=== PATIENT | male | born 1960 | race Caucasian/White ===

== ENCOUNTER 2020-10-26 17:22 | Emergency (ER) | payer BC ==
[2020-10-26] MEDS ORDERED: SILVADENE 50 GM TP ONE ×2 (17:33→17:46)
[2020-10-26] MEDS ORDERED: KEFLEX 500 MG PO ONE (17:35)
[2020-10-26] MEDS ORDERED: Adacel Vial IM ONE ×2 (17:35→18:22)
[2020-10-26] MEDS ORDERED: OXYCODONE-ACETAMINOPHEN 10-325 PO STA (17:36)
--- NOTE | 2020-10-26 18:03 | ERPHSYRPT ---
- History of Present Illness Time Seen by Provider: 10/26/20 17:40 Source: patient Exam Limitations: no limitations Patient Subjective Stated Complaint: amputated tip of 3rd L hand Triage Nursing Assessment: pt to ED with amputated tip of 3rd finger of L hand. 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 bleeding on arrival, wrapped in paper towel from home. 10/10 pain on arrival. numbed with lidocaine by MD and pt states pain is much better. unsure of last tetanus vaccine. Physician History: This is a 60-year-old right-handed white male who was working with [employer] saw when he amputated the distal tip of his left middle finger. Patient presents in pain with bleeding at the tip of his finger. Occurred: just prior to arrival Method of Injury: other (Injury with a saw) Quality: aching, throbbing Severity of Pain-Max: moderate Severity of Pain-Current: moderate Extremities Pain Location: 3rd finger: left Modifying Factors: Improves With: movement Associated Symptoms: none Allergies/Adverse Reactions: No Known Drug Allergies Allergy (Verified 10/26/20 17:44) Hx Tetanus, Diphtheria Vaccination/Date Given: No Hx Influenza Vaccination/Date Given: No Hx Pneumococcal Vaccination/Date Given: No Immunizations Up to Date: No Travel Risk - International Travel Have you traveled outside of the country in past 3 weeks: No - Coronavirus Screening Are you exhibiting any of the following symptoms?: No Close contact with a COVID-19 positive Pt in past 14-21 Days: No - Review of Systems Constitutional: No Symptoms Eyes: No Symptoms Ears, Nose, & Throat: No Symptoms Respiratory: No Symptoms Cardiac: No Symptoms Abdominal/Gastrointestinal: No Symptoms Genitourinary Symptoms: No Symptoms Musculoskeletal: Injury (Distal left third digit) Neurological: No Symptoms Psychological: No Symptoms Endocrine: No Symptoms Hematologic/Lymphatic: No Symptoms Immunological/Allergic: No Symptoms All Other Systems: Reviewed and Negative - Past Medical History Pertinent Past Medical History: Yes Neurological History: No Pertinent History ENT History: No Pertinent History Cardiac History: Hypertension, Myocardial Infarction ([place]) Respiratory History: Tuberculosis, Other Endocrine Medical History: No Pertinent History Musculoskeletal History: No Pertinent History GI Medical History: No Pertinent History History: No Pertinent History Psycho-Social History: No Pertinent History Male Reproductive Disorders: No Pertinent History Other Medical History: SPONTANOUS PNUEMOTHORAX x 2. TB 2002 - Past Surgical History Past Surgical History: Yes Neuro Surgical History: No Pertinent History Cardiac: Cardiac Catheterization, Cardiac Stent Respiratory: Other Gastrointestinal: Hernia Repair Genitourinary: No Pertinent History Musculoskeletal: No Pertinent History Male Surgical History: No Pertinent History Other Surgical History: RIGHT SIDE HERNIA REPAIR. 2 SPONTANEOUS PNEUMOTHORAX AT AGE OG 24 ET 26. 2 stents placed 2013 - Social History Smoking Status: Current every day smoker How long have you smoked: 0.5 Exposure to second hand smoke: Yes Alcohol Use: Socially Drug Use: none Patient Lives Alone: No Significant Family History: no pertinent family hx - Nursing Vital Signs Nursing Vital Signs: Initial Vital Signs Temperature 98.1 F 10/26/20 17:36 Pulse Rate 105 H 10/26/20 17:36 Respiratory Rate 20 10/26/20 17:36 Blood Pressure 118/84 10/26/20 17:36 O2 Sat by Pulse Oximetry 95 10/26/20 17:36 Pain Scale Pain Intensity 10 - Physical Exam General Appearance: mild distress, alert, anxiety Eyes, Ears, Nose, Throat Exam: normal ENT inspection, moist mucous membranes Neck Exam: normal inspection, non-tender, supple, full range of motion Cardiovascular/Respiratory Exam: chest non-tender, no respiratory distress Abdominal Exam: non-tender Back Exam: normal inspection, normal range of motion, No CVA tenderness Shoulder Exam: normal inspection, non-tender, no evidence of injury, normal ROM Elbow/Forearm Exam: normal inspection, non-tender, no evidence of injury, normal ROM Wrist Exam: normal inspection, non-tender, no evidence of injury, normal ROM Hand Exam: normal ROM (There is an amputation of tissue and half of the nail bed the distal third digit. There appears to be full function of the tendons. There is brisk oozing from the site which is controlled with pressure.) Neuro/Tendon Exam: normal sensation, normal motor functions, normal tendon functions, no evidence tendon injury Mental Status Exam: alert, oriented x 3 Skin Exam: other (Of) SpO2 Interpretation: borderline oxygenation SpO2: 95 O2 Delivery: Room Air - Course Nursing assessment & vital signs reviewed: Yes Ordered Tests: Active Orders 24 hr Category Date Time Status HAND (MINIMUM 3 VIEWS) Stat Exams 10/26/20 17:36 Taken Medication Summary Discontinued Medications Generic Name Dose Route Start Last Admin Trade Name Freq PRN Reason Stop Dose Admin Cephalexin HCl 500 mg 10/26/20 17:35 Keflex 500 Mg PO 10/26/20 17:36 STAT ONE Diphtheria/Tetanus/Acell Pertussis 0.5 ml 10/26/20 17:35 Adacel Vial IM 10/26/20 17:36 .ONCE ONE Oxycodone/Acetaminophen 1 tab 10/26/20 17:36 Oxycodone-Acetaminophen 10-325 PO 10/26/20 17:37 STAT STA Silver Sulfadiazine Confirm 10/26/20 17:33 Silvadene 50 Gm Administered 10/26/20 17:34 Dose 50 gm TP .STK-MED ONE Silver Sulfadiazine 50 gm 10/26/20 17:46 Silvadene 50 Gm TP 10/26/20 17:47 STAT ONE - Progress Progress: improved, pain not gone completely, re-examined Progress Note: 10/26/20 18:06 Procedure note: Evaluation of the patient's left third digit was performed after prepping the digit with Betadine solution and anesthetizing the area with approximately 3 mL of 1% lidocaine plain. Patient had full function of his tendons of that digit. The risk of oozing from the amputation site ceased with pressure and injection of the lidocaine. The area was cleaned dried Silvadene was placed overlying the open amputated site then a pressure dressing and finger splint was placed. There were no complications the pain tolerated the procedure well. Medical decision making: This patient has an amputated tip of his distal third digit. At [address] Pathak, hand surgeon out of [facility]. I spoke with the operating room nurse who relayed the information about this patient to him. We put the x-rays on the cloud. Dr. Pathak gave us an appointment for this patient. He is to see Dr. Pathak at the [facility] clinic at 1 PM tomorrow afternoon. Discussed with Dr.: Other (Dr. Pathak, hand surgeon out of [facility]) Counseled pt/family regarding: diagnosis, need for follow-up, rad results - Departure Departure Disposition: Home Clinical Impression: Amputation finger Condition: Stable Critical Care Time: No Referrals: ABEL JUNIOR [Primary Care Provider] - Additional Instructions: Keep the pressure dressing in place. Take your medication as prescribed. Follow-up with Dr. Pathak at his office per instructions and directions. Be there just before 1 PM tomorrow, October 27, 2020. Prescriptions: Hydrocodone/APAP 5/325 [[place] 5/325 mg] 1 each PO Q8H PRN PRN #10 tablet MDD 3 PRN Reason: Pain Cephalexin Mh 500 mg [Keflex 500 mg] 500 mg PO TID #21 capsule
[2020-10-26] MEDS ORDERED: KEFLEX 500 MG ONE (18:21)
[2020-10-26] MEDS ORDERED: OXYCODONE-ACETAMINOPHEN 10-325 ONE (18:22)
[2020-10-26 18:32] VITALS: BP 103/77; PULSE 89; O2SAT 98
--- NOTE | 2020-10-27 08:45 | XRAY ---
Indication: 3rd digit laceration with saw. Comparison: None 3 view left hand demonstrates 3rd phalanx tuft soft tissue/bony amputation, old nonunited ulnar styloid fracture with tiny heterotopic ossification, and a ring base 4th phalanx. No other bony, articular, or soft tissue abnormalities.
== END 2020-10-26 18:50 | disposition home or self-care (01) ==
LOC: ED 17:22
DX: S68.123A Partial traumatic metacarpophalangeal amputation of left middle finger, initial encounter (principal); W31.2XXA Contact with powered woodworking and forming machines, initial encounter; I10 Essential (primary) hypertension; I25.2 Old myocardial infarction
CPT/HCPCS: 73130; 90471; 90715; 99284; A9270-GY

== ENCOUNTER 2022-05-21 19:04 | Observation (INO) | payer BC ==
[2022-05-21] MEDS ORDERED: Sterile H2O 10 ml IJ ONE ×2 (19:07→23:43)
[2022-05-21] MEDS ORDERED: solu-MEDROL ONE ×2 (19:07→23:42)
[2022-05-21] MEDS ORDERED: DUONEB 0.5-3 MG/3 ml Neb IH ONE ×2 (19:08→19:12)
[2022-05-21] MEDS ORDERED: BENADRYL 50 MG/ML ONE (19:11)
[2022-05-21] MEDS ORDERED: Pepcid 20 MG VIAL IV ONE ×2 (19:11→19:12)
[2022-05-21] MEDS ORDERED: solu-MEDROL 125 MG, Sterile H2O 10 ml 2 ML IV ONE ×2 (19:12)
[2022-05-21] MEDS ORDERED: BENADRYL 50 MG/ML IV ONE (19:13)
[2022-05-21 19:24] LABS: A-aADO2 148; ABG HEMOGLOBIN 17.2; ABG POTASSIUM 3.7 (3.5-5.1); ABG SITE LEFT RADIAL; ALLEN TEST OK? YES; ARTERIAL BLD GAS O2 SATURATION 97.7 % (95-100); ARTERIAL BLOOD GAS FIO2 40 %; ARTERIAL BLOOD GAS PCO2 40 mmHg (35-45); ARTERIAL BLOOD GAS PO2 87 mmHg (75-100); ARTERIAL BLOOD GAS pH 7.43 (7.35-7.45); CARBOXYHEMOGLOBIN 6.3 % THgb (0.0-6.9); HCO3- 26.5 (22-28); HGB O2 SAT 90.4 g/dF (94-100); Lactic Acid 1.8 (0.4-2.0); Methhemoglobin 1.1 % (1.4-1.5)
--- NOTE | 2022-05-21 19:27 | ERPHSYRPT ---
- History of Present Illness Time Seen by Provider: 05/21/22 19:12 Source: patient Exam Limitations: clinical condition Physician History: 62 years old male with history of coronary artery disease status post CABG, hypertension, hyperlipidemia presented in the ER with chief complaint of sudden onset's moderate to severe shortness of breath after eating and inhaled a mi xture of bleach and toilet bowl photo mask cleaner for almost 5 minutes while cleaning his bathroom. Complaining of chest tightness bilaterally with burning sensations. Patient oxygen saturation is around 86/87% on presentation, placed on 6 L oxygen and improved to 92%. Is given Solu-Medrol and DuoNeb and placed on coolmist Venturi mask 40% with sats around 96%. Timing/Duration: hour(s) (0.5), constant, sudden, worse Activities at Onset: other Possible Cause: allergen exposure Modifying Factors: Improves With: nothing Associated Symptoms: cough, wheezing, heart racing, tightness Allergies/Adverse Reactions: No Known Drug Allergies Allergy (Verified 10/26/20 17:44) Home Medications: Ezetimibe 10 mg [Zetia 10 MG] 10 mg PO DAILY 05/21/22 [History] Furosemide 20 mg [Lasix 20 mg] 20 mg PO DAILY 05/21/22 [History] Metoprolol Succinate 50 mg [Toprol Xl 50 MG] 50 mg PO DAILY 05/21/22 [History] lisinopriL [Lisinopril] 5 mg PO DAILY 05/21/22 [History] Hx Tetanus, Diphtheria Vaccination/Date Given: No Hx Influenza Vaccination/Date Given: No Hx Pneumococcal Vaccination/Date Given: No - Review of Systems All Other Systems: Unable due to condition - Past Medical History Pertinent Past Medical History: Yes Neurological History: No Pertinent History ENT History: No Pertinent History Cardiac History: Hypertension, Myocardial Infarction ([place]) Respiratory History: Tuberculosis, Other Endocrine Medical History: No Pertinent History Musculoskeletal History: No Pertinent History GI Medical History: No Pertinent History History: No Pertinent History Psycho-Social History: No Pertinent History Male Reproductive Disorders: No Pertinent History Other Medical History: SPONTANOUS PNUEMOTHORAX x 2. TB 2002 - Past Surgical History Past Surgical History: Yes Neuro Surgical History: No Pertinent History Cardiac: Cardiac Catheterization, Cardiac Stent Respiratory: Other Gastrointestinal: Hernia Repair Genitourinary: No Pertinent History Musculoskeletal: No Pertinent History Male Surgical History: No Pertinent History Other Surgical History: RIGHT SIDE HERNIA REPAIR. 2 SPONTANEOUS PNEUMOTHORAX AT AGE OG 24 ET 26. 2 stents placed 2013 - Social History Smoking Status: Current every day smoker How long have you smoked: 0.5 Exposure to second hand smoke: Yes Alcohol Use: Socially Drug Use: none Patient Lives Alone: No Significant Family History: no pertinent family hx - Nursing Vital Signs Nursing Vital Signs: Initial Vital Signs Temperature 98.3 F 05/21/22 19:05 Pulse Rate 92 H 05/21/22 19:05 Respiratory Rate 18 05/21/22 19:05 Blood Pressure 117/90 05/21/22 19:05 O2 Sat by Pulse Oximetry 90 L 05/21/22 19:05 Pain Scale Pain Intensity 6 - Physical Exam General Appearance: moderate distress, alert Eye Exam: PERRL/EOMI Ears, Nose, Throat Exam: pharyngeal erythema Neck Exam: normal inspection, non-tender, supple, full range of motion Respiratory Exam: respiratory distress, diminished breath sounds, accessory muscle use, rhonchi, wheezing Cardiovascular/Chest Exam: normal heart sounds, regular rate/rhythm Abdominal/Gastrointestinal Exam: soft, normal bowel sounds, No tenderness Extremity Exam: non-tender, normal range of motion Neurologic Exam: alert, oriented x 3, cooperative Skin Exam: normal color SpO2 Interpretation: hypoxic, O2 applied SpO2: 92 O2 Delivery: Nasal Cannula - Course EKG Interpreted by Me: RATE (82), Sinus Rhythm, NORMAL AXIS, NORMAL INTERVALS, Non-specific ST Changes Ordered Tests: Medication Summary Discontinued Medications Generic Name Dose Route Start Last Admin Trade Name Rachael PRN Reason Stop Dose Admin Acetaminophen 650 mg 05/21/22 22:25 05/22/22 13:47 Acetaminophen 325 Mg Tablet PO 06/20/22 22:24 650 mg Q4H PRN PRN Administration PAIN AND/OR FEVER Albuterol/Ipratropium Confirm 05/21/22 19:08 Ipratropium/Albuterol Sulfate 3 Ml Ampul.Neb Administered 05/21/22 19:09 Dose 3 ml IH .STK-MED ONE Albuterol/Ipratropium 3 ml 05/21/22 19:12 05/21/22 19:15 Ipratropium/Albuterol Sulfate 3 Ml Ampul.Neb IH 05/21/22 19:13 3 ml STAT ONE Administration Albuterol/Ipratropium 3 ml 05/21/22 23:00 05/22/22 11:07 Ipratropium/Albuterol Sulfate 3 Ml Ampul.[facility] 06/20/22 22:59 3 ml Q4HRT STEPHANIE Administration Albuterol/Ipratropium 3 ml 05/22/22 15:00 05/23/22 06:53 Ipratropium/Albuterol Sulfate 3 Ml Ampul.[facility] 06/21/22 14:59 3 ml QIDRT STEPHANIE Administration Methylprednisolone Sodium 0 mg 05/21/22 19:12 05/21/22 19:10 Succinate 125 mg/ Sterile IV 05/21/22 19:13 125 mg Water 2 ml STAT ONE Administration Methylprednisolone Sodium 0 mg 05/22/22 00:00 05/22/22 11:30 Succinate 80 mg/ Sterile Water IV 06/21/22 00:00 80 mg 2 ml Q6HT STEPHANIE Administration Methylprednisolone Sodium 0 mg 05/22/22 22:00 05/23/22 05:53 Succinate 40 mg/ Sterile Water IV 06/21/22 21:59 40 mg 1 ml Q8HT STEPHANIE Administration Diphenhydramine HCl 25 mg 05/21/22 19:13 05/21/22 19:15 Diphenhydramine Hcl 50 Mg/Ml Vial IV 05/21/22 19:14 25 mg STAT ONE Administration Diphenhydramine HCl Confirm 05/21/22 19:11 Diphenhydramine Hcl 50 Mg/Ml Vial Administered 05/21/22 19:12 Dose 50 mg .ROUTE .STK-MED ONE Ezetimibe 10 mg 05/22/22 16:00 05/23/22 07:50 Ezetimibe 10 Mg Tab PO 06/21/22 15:59 10 mg DAILY STEPHANIE Administration Famotidine 20 mg 05/21/22 19:12 05/21/22 19:13 Famotidine 20 Mg/1 Vial IV 05/21/22 19:13 20 mg STAT ONE Administration Famotidine Confirm 05/21/22 19:11 Famotidine 20 Mg/1 Vial Administered 05/21/22 19:12 Dose 20 mg IV .STK-MED ONE Furosemide 20 mg 05/22/22 16:00 05/23/22 07:50 Furosemide 20 Mg Tablet PO 06/21/22 15:59 20 mg DAILY STEPHANIE Administration Levofloxacin/Dextrose 500 mg in 100 mls @ 100 mls/hr 05/21/22 20:29 05/21/22 21:41 Levofloxacin 500mg/100ml D5w IV 05/21/22 21:28 Infused STAT STA Infusion Levofloxacin/Dextrose Confirm 05/21/22 20:40 Levofloxacin 500mg/100ml D5w Administered 05/21/22 20:41 Dose 500 mg in 100 mls @ ud IV .STK-MED ONE Levofloxacin/Dextrose 500 mg in 100 mls @ 100 mls/hr 05/22/22 22:00 Levofloxacin 500mg/100ml D5w IV 06/21/22 21:59 Q24H22 STEPHANIE Lisinopril 5 mg 05/22/22 16:00 05/23/22 07:50 Lisinopril 5 Mg Tablet PO 06/21/22 15:59 5 mg DAILY STEPHANEI Administration Lorazepam 0.5 mg 05/22/22 14:07 05/22/22 14:44 Lorazepam 0.5 Mg Tablet PO 06/21/22 14:06 0.5 mg TID PRN PRN Administration ANXIETY Lorazepam 1 mg 05/22/22 17:59 05/23/22 05:46 Lorazepam 1 Mg Tablet PO 06/21/22 17:58 1 mg QID PRN PRN Administration ANXIETY Methylprednisolone Sodium Succinate Confirm 05/21/22 19:07 Methylprednis Sod Succ 125 Mg/2 Ml Vial Administered 05/21/22 19:08 Dose 125 mg .ROUTE .STK-MED ONE Methylprednisolone Sodium Succinate Confirm 05/21/22 23:42 Methylprednis Sod Succ 125 Mg/2 Ml Vial Administered 05/21/22 23:43 Dose 125 mg .ROUTE .STK-MED ONE Methylprednisolone Sodium Succinate Confirm 05/22/22 06:00 Methylprednis Sod Succ 125 Mg/2 Ml Vial Administered 05/22/22 06:01 Dose 125 mg .ROUTE .STK-MED ONE Metoprolol Succinate 50 mg 05/22/22 16:00 05/23/22 07:50 Metoprolol Succinate 50 Mg Tablet.Sa PO 06/21/22 15:59 50 mg DAILY STEPHANIE Administration Nicotine 21 mg 05/22/22 14:07 05/22/22 14:44 Nicotine 21 Mg/Patch Patch TOP 05/22/22 14:08 21 mg STAT ONE Administration Pantoprazole Sodium 40 mg 05/22/22 10:00 05/23/22 07:52 Pantoprazole 40 Mg Vial IV 06/21/22 09:59 40 mg Q24H10 STEPHANIE Administration Sterile Water Confirm 05/21/22 19:07 Water For Injection,Sterile 10 Ml Vial Administered 05/21/22 19:08 Dose 10 ml IJ .STK-MED ONE Sterile Water Confirm 05/21/22 23:43 Water For Injection,Sterile 10 Ml Vial Administered 05/21/22 23:44 Dose 10 ml IJ .STK-MED ONE Lab/Rad Data: Laboratory Result Diagrams 05/21/22 19:52 05/21/22 19:52 Laboratory Results 05/21/22 05/21/22 05/21/22 Range/Units 20:47 20:47 19:52 WBC (4.0-10.5) x10^3/uL RBC (4.1-5.6) x10^6/uL Hgb (12.5-18.0) g/dL Hct (42-50) % MCV (78-100) fL MCH (26-32) pg MCHC (32-36) g/dL RDW (11.5-14.0) % Plt Count (150-450) x10^3/uL MPV (7.5-11.0) fL Gran % (36.0-66.0) % Immature Gran % (Auto) (0.00-0.4) % Nucleat RBC Rel Count (0.00-0.1) % Eos # (Auto) (0-0.5) x10^3/uL Immature Gran # (Auto) (0.00-0.03) x10^3u/L Absolute Lymphs (auto) (1.0-4.6) x10^3/uL Absolute Monos (auto) (0.0-1.3) x10^3/uL Absolute Nucleated RBC (0.00-0.01) x10^3u/L Lymphocytes % (24.0-44.0) % Monocytes % (0.0-12.0) % Eosinophils % (0.00-5.0) % Basophils % (0.0-0.4) % Absolute Granulocytes (1.4-6.9) x10^3/uL Basophils # (0-0.4) x10^3/uL Puncture Site pCO2 (35-45) mmHg pO2 (75-100) mmHg Base Excess (-2.0-2.0) O2 Saturation (94-100) g/dF ABG pH (7.35-7.45) ABG HCO3 (22-28) ABG O2 Sat (Measured) (95-100) % Carlos Test A-a Gradient a/A Ratio Hemoglobin Carboxyhemoglobin (0.0-6.9) % THgb Methemoglobin (1.4-1.5) % Potassium (3.5-5.1) Temperature C POC O2 Flow Rate % Sodium (137-145) mmol/L Chloride (98-107) mmol/L Carbon Dioxide (22-30) mmol/L Anion Gap (5-15) MEQ/L BUN (9-20) mg/dL Creatinine (0.66-1.25) mg/dL Estimated GFR ML/MIN Glucose (74-106) mg/dL Lactic Acid (0.4-2.0) Calcium (8.4-10.2) mg/dL Magnesium (1.6-2.3) mg/dL Total Bilirubin (0.2-1.3) mg/dL AST (17-59) U/L ALT (0-50) U/L Alkaline Phosphatase (38-126) U/L Troponin I < 0.012 (0.000-0.034) ng/mL NT-Pro-B Natriuret Pep (0-900) pg/mL Serum Total Protein (6.3-8.2) g/dL Albumin (3.5-5.0) g/dL Urinalys Dipstick Clnc MAIN LAB Urine Color YELLOW (YELLOW) Urine Appearance CLEAR (CLEAR) Urine pH 6.0 (5-6) Ur Specific [place] 1.010 (1.005-1.025) POC Urine Protein Conf NEGATIVE (Negative) Urine Ketones NEGATIVE (NEGATIVE) Urine Nitrite NEGATIVE (NEGATIVE) Urine Bilirubin NEGATIVE (NEGATIVE) Urine Urobilinogen 0.2 (0-1) mg/dL Urine Leukocytes NEGATIVE (NEGATIVE) Urine WBC (Auto) NONE (0-5) /HPF Urine RBC (Auto) NONE (0-2) /HPF U Epithel Cells (Auto) NONE (FEW) /HPF Urine Bacteria (Auto) NONE (NEGATIVE) /HPF Urine RBC NEGATIVE (0-5) Moris/ul Other Casts (Auto) NEGATIVE (NEGATIVE) /LPF Ur Culture Indicated? NO Urine Glucose NEGATIVE (NEGATIVE) mg/dL Influenza Type A Ag NEGATIVE (NEGATIVE) Influenza Type B Ag NEGATIVE (NEGATIVE) RSV (PCR) NEGATIVE (Negative) SARS-CoV-2 (PCR) NEGATIVE (NEGATIVE) 05/21/22 05/21/22 05/21/22 Range/Units 19:52 19:52 19:19 WBC 7.0 (4.0-10.5) x10^3/uL RBC 5.13 (4.1-5.6) x10^6/uL Hgb 16.6 (12.5-18.0) g/dL Hct 49.2 (42-50) % MCV 95.9 (78-100) fL MCH 32.4 H (26-32) pg MCHC 33.7 (32-36) g/dL RDW 13.4 (11.5-14.0) % Plt Count 175 (150-450) x10^3/uL MPV 9.8 (7.5-11.0) fL Gran % 55.3 (36.0-66.0) % Immature Gran % (Auto) 1.0 H (0.00-0.4) % Nucleat RBC Rel Count 0.0 (0.00-0.1) % Eos # (Auto) 0.27 (0-0.5) x10^3/uL Immature Gran # (Auto) 0.07 H (0.00-0.03) x10^3u/L Absolute Lymphs (auto) 2.12 (1.0-4.6) x10^3/uL Absolute Monos (auto) 0.64 (0.0-1.3) x10^3/uL Absolute Nucleated RBC 0.00 (0.00-0.01) x10^3u/L Lymphocytes % 30.1 (24.0-44.0) % Monocytes % 9.1 (0.0-12.0) % Eosinophils % 3.8 (0.00-5.0) % Basophils % 0.7 (0.0-0.4) % Absolute Granulocytes 3.89 (1.4-6.9) x10^3/uL Basophils # 0.05 (0-0.4) x10^3/uL Puncture Site LEFT RADIAL pCO2 40 (35-45) mmHg pO2 87 (75-100) mmHg Base Excess 2.0 (-2.0-2.0) O2 Saturation 90.4 L (94-100) g/dF ABG pH 7.43 (7.35-7.45) ABG HCO3 26.5 (22-28) ABG O2 Sat (Measured) 97.7 (95-100) % Carlos Test YES A-a Gradient 148 a/A Ratio 0.37 Hemoglobin 17.2 Carboxyhemoglobin 6.3 (0.0-6.9) % THgb Methemoglobin 1.1 L (1.4-1.5) % Potassium 3.8 3.7 (3.5-5.1) Temperature 37.0 C POC O2 Flow Rate 40 % Sodium 133 L (137-145) mmol/L Chloride 103 (98-107) mmol/L Carbon Dioxide 19 L (22-30) mmol/L Anion Gap 15.0 (5-15) MEQ/L BUN 14 (9-20) mg/dL Creatinine 0.71 (0.66-1.25) mg/dL Estimated GFR > 60.0 ML/MIN Glucose 117 H (74-106) mg/dL Lactic Acid 1.8 (0.4-2.0) Calcium 8.2 L (8.4-10.2) mg/dL Magnesium 2.1 (1.6-2.3) mg/dL Total Bilirubin 0.70 (0.2-1.3) mg/dL AST 81 H (17-59) U/L ALT 59 H (0-50) U/L Alkaline Phosphatase 103 (38-126) U/L Troponin I (0.000-0.034) ng/mL NT-Pro-B Natriuret Pep 50.6 (0-900) pg/mL Serum Total Protein 6.9 (6.3-8.2) g/dL Albumin 3.6 (3.5-5.0) g/dL Urinalys Dipstick Clnc Urine Color (YELLOW) Urine Appearance (CLEAR) Urine pH (5-6) Ur Specific [place] (1.005-1.025) POC Urine Protein Conf (Negative) Urine Ketones (NEGATIVE) Urine Nitrite (NEGATIVE) Urine Bilirubin (NEGATIVE) Urine Urobilinogen (0-1) mg/dL Urine Leukocytes (NEGATIVE) Urine WBC (Auto) (0-5) /HPF Urine RBC (Auto) (0-2) /HPF U Epithel Cells (Auto) (FEW) /HPF Urine Bacteria (Auto) (NEGATIVE) /HPF Urine RBC (0-5) Moris/ul Other Casts (Auto) (NEGATIVE) /LPF Ur Culture Indicated? Urine Glucose (NEGATIVE) mg/dL Influenza Type A Ag (NEGATIVE) Influenza Type B Ag (NEGATIVE) RSV (PCR) (Negative) SARS-CoV-2 (PCR) (NEGATIVE) - Progress Progress: improved, re-examined Air Movement: good Progress Note: 05/21/22 20:56 62 years old is evaluated for respiratory distress after inhaling chemicals. Patient was placed on oxygen, given Solu-Medrol/DuoNeb and was on coolmist Venturi 40% for almost an hour and is switched to 4 L and satting around 94%. Patient is feeling much better on reevaluation. Chest x-ray consistent with allergic pneumonitis. Given a dose of antibiotic as well. Has negative troponin and white count. Discussed with Dr. Carter, reviewed history, work- up and patient is excepted for admission. She requested pulmonology consult for tomorrow. Which would be placed. Antibiotics given: Yes Discussed with : Nazario Will see patient in: hospital (observation) Counseled pt/family regarding: lab results, diagnosis, need for follow-up, rad results - Departure Departure Disposition: Observation Clinical Impression: Allergic pneumonitis, COPD exacerbation Condition: Stable Critical Care Time: Yes Critical Care Time(excluding separately billable procedures): Critical 30-74 mins
[2022-05-21 19:55] LABS: Absolute Neutrophil Ct (ANC) 3.89 x10^3/uL (1.4-6.9); Basophil (Absolute #) 0.05 x10^3/uL (0-0.4); Eosinophil % 3.8 % (0.00-5.0); Eosinophil (Absolute #) 0.27 x10^3/uL (0-0.5); Hematocrit 49.2 % (42-50); Hemoglobin 16.6 g/dL (12.5-18.0); Lymphocyte (Absolute #) 2.12 x10^3/uL (1.0-4.6); Lymphocytes % 30.1 % (24.0-44.0); Mean Cell Volume 95.9 fL (78-100); Mean Corpuscular Hemoglobin 32.4 pg (26-32); Mean Corpuscular Hgb Concent. 33.7 g/dL (32-36); Mean Platelet Volume 9.8 fL (7.5-11.0); Monocyte (Absolute #) 0.64 x10^3/uL (0.0-1.3); Monocytes % 9.1 % (0.0-12.0); Neutrophil % 55.3 % (36.0-66.0); Platelet Count 175 x10^3/uL (150-450); Red Blood Count 5.13 x10^6/uL (4.1-5.6); Red Cell Distribution Width 13.4 % (11.5-14.0)
[2022-05-21 20:15] LABS: ALBUMIN 3.6 g/dL (3.5-5.0); ALKALINE PHOSPHATASE 103 U/L (38-126); BLOOD UREA NITROGEN 14 mg/dL (9-20); CHLORIDE 103 mmol/L (98-107); Calcium 8.2 mg/dL (8.4-10.2); Carbon Dioxide 19 mmol/L (22-30); Creatinine 1 0.71 mg/dL (0.66-1.25); EST GLOMERULAR FILTRATION RATE > 60.0 ML/MIN; Glucose 117 mg/dL (74-106); MAGNESIUM 2.1 mg/dL (1.6-2.3); NT PRO BNP 50.6 pg/mL (0-900); Potassium 3.8 mmol/L (3.5-5.1); SGOT/AST 81 U/L (17-59); SGPT/ALT 59 U/L (0-50); SODIUM 133 mmol/L (137-145); Total Protein 6.9 g/dL (6.3-8.2)
[2022-05-21] MEDS ORDERED: Levofloxacin 500MG/100ML D5W 500 MG/100 ML BAG IV STA (20:29)
[2022-05-21] MEDS ORDERED: Levofloxacin 500MG/100ML D5W 500 MG/100 ML BAG IV ONE (20:40)
[2022-05-21 21:21] LABS: Appearance CLEAR (CLEAR); Bilirubin NEGATIVE (NEGATIVE); Glucose NEGATIVE (NEGATIVE); Ketones NEGATIVE (NEGATIVE)
[2022-05-21 21:22] LABS: Dipstick done @ ? MAIN LAB; Nitrite NEGATIVE (NEGATIVE); Protein,Urine Dip NEGATIVE (Negative); RBC NEGATIVE Ery/ul (0-5); Urobilinogen 0.2 mg/dL (0-1)
[2022-05-21 21:23] LABS: Urine Cultured Indicated? NO
[2022-05-21 21:53] LABS: INFLUENZA A NEGATIVE (NEGATIVE); INFLUENZA B NEGATIVE (NEGATIVE); RESPIRATORY SYNCTIAL VIRUS NEGATIVE (Negative); SARS-CoV-2 Xpert Express NEGATIVE (NEGATIVE)
[2022-05-21] MEDS: DUONEB 0.5-3 MG/3 ml Neb IH SCH (23:17)
[2022-05-21] MEDS: TYLENOL 325 MG PO PRN (23:46)
[2022-05-21] MEDS: solu-MEDROL 80 MG, Sterile H2O 10 ml 2 ML IV SCH ×2 (23:47)
[2022-05-22] MEDS: DUONEB 0.5-3 MG/3 ml Neb IH SCH ×5 (03:20→18:50)
[2022-05-22 04:41] LABS: Absolute Neutrophil Ct (ANC) 6.89 x10^3/uL (1.4-6.9); Basophil (Absolute #) 0.04 x10^3/uL (0-0.4); Eosinophil % 0.1 % (0.00-5.0); Eosinophil (Absolute #) 0.01 x10^3/uL (0-0.5); Hematocrit 50.5 % (42-50); Hemoglobin 17.1 g/dL (12.5-18.0); Lymphocyte (Absolute #) 0.51 x10^3/uL (1.0-4.6); Lymphocytes % 6.7 % (24.0-44.0); Mean Cell Volume 94.2 fL (78-100); Mean Corpuscular Hemoglobin 31.9 pg (26-32); Mean Corpuscular Hgb Concent. 33.9 g/dL (32-36); Monocyte (Absolute #) 0.06 x10^3/uL (0.0-1.3); Monocytes % 0.8 % (0.0-12.0); Neutrophil % 91.1 % (36.0-66.0); Platelet Count 163 x10^3/uL (150-450); Red Blood Count 5.36 x10^6/uL (4.1-5.6); Red Cell Distribution Width 13.4 % (11.5-14.0); White Blood Count 7.6 x10^3/uL (4.0-10.5)
[2022-05-22 05:16] LABS: ALBUMIN 3.7 g/dL (3.5-5.0); ALKALINE PHOSPHATASE 94 U/L (38-126); ANION GAP 9.6 MEQ/L (5-15); BLOOD UREA NITROGEN 14 mg/dL (9-20); CHLORIDE 103 mmol/L (98-107); Calcium 8.8 mg/dL (8.4-10.2); Carbon Dioxide 27 mmol/L (22-30); Creatinine 1 0.72 mg/dL (0.66-1.25); EST GLOMERULAR FILTRATION RATE > 60.0 ML/MIN; Glucose 213 mg/dL (74-106); Potassium 4.1 mmol/L (3.5-5.1); SGOT/AST 57 U/L (17-59); SGPT/ALT 55 U/L (0-50); SODIUM 135 mmol/L (137-145)
[2022-05-22] MEDS ORDERED: solu-MEDROL ONE (06:00)
[2022-05-22] MEDS: solu-MEDROL 80 MG, Sterile H2O 10 ml 2 ML IV SCH ×4 (06:03→11:30)
[2022-05-22 06:29] LABS: Slide Review 1 YES
[2022-05-22] MEDS: TYLENOL 325 MG PO PRN ×2 (07:40→13:47)
--- NOTE | 2022-05-22 08:54 | XRAY ---
Indication: Short of breath. Comparison: January 05, 2014. Portable chest better inflated and clear. Heart and mediastinal structures within normal limits. Bony thorax intact with mild osteopenia, degenerative changes, and old right 10 rib fracture. Impression: Nonacute chest.
[2022-05-22] MEDS: PROTONIX 40 MG IV IV SCH (11:30)
[2022-05-22] MEDS ORDERED: Ativan 0.5 MG PO PRN (14:07)
[2022-05-22] MEDS ORDERED: Nicoderm CQ 21 MG TOP ONE (14:07)
--- NOTE | 2022-05-22 14:13 | PCM.HP ---
History of Present Illness - Chief Complaint Chief Complaint: allegic pnuemonitis History of Present Illness: is a 62 year old male who presented to ER with difficulty breathing. Patient states he poured bleach and toilet bowl ware cleaner in the toilet and started the shower ,when showering he became very short of breath ,unable to catch his breath. ER arrival O2 sats mid 80s improved to 96% on 6L cool mist venturi mask,treated with duoneb and IV solumedrol and IV Benadryl.. CXR no acu te findings,EKG -NSR nonspecific ST-[place] changes. Patient is a current everyday smoker . PMHx includes HTN,TN/stents 2013,COPD,TB in 2002,remote hx spontaneous pneumothorax x2,diverticulittis. Patient is admitted to ICU . He is stable but anxious, Nicotene patch and Ativan given. Weened off O2 to RA and maintained sats. - Review of Systems Constitutional: No Symptoms Eyes: No Symptoms Ears, Nose, & Throat: Nose Congestion Respiratory: Short Of Breath (resolved with Tx) Cardiac: No Symptoms Abdominal/Gastrointestinal: No Symptoms Genitourinary Symptoms: No Symptoms Musculoskeletal: No Symptoms Skin: No Symptoms Neurological: No Symptoms Psychological: Anxiety, Other (alcohol use daily) Endocrine: No Symptoms Hematologic/Lymphatic: No Symptoms Medications & Allergies Home Medications: Home Medication List Ezetimibe 10 mg [Zetia 10 MG] 10 mg PO DAILY 05/21/22 [History Confirmed 05/21/22] Furosemide 20 mg [Lasix 20 mg] 20 mg PO DAILY 05/21/22 [History Confirmed 05/21/22] Metoprolol Succinate 50 mg [Toprol Xl 50 MG] 50 mg PO DAILY 05/21/22 [History Confirmed 05/21/22] lisinopriL [Lisinopril] 5 mg PO DAILY 05/21/22 [History Confirmed 05/21/22] Albuterol Sulfate [Albuterol Sulfate Hfa] 18 gm IH Q4H PRN PRN #1 05/23/22 [Rx] Prednisone 10 mg [Deltasone 10 mg] 10 mg PO DAILY #20 tablet 05/23/22 [Rx] Allergies/Adverse Reactions: Allergies Allergy/AdvReac Type Severity Reaction Status Date / Time No Known Drug Allergies Allergy Verified 10/26/20 17:44 - Past Medical History Past Medical History: Yes Neurological History: No Pertinent History ENT History: No Pertinent History Cardiac History: Hypertension, Myocardial Infarction (TN) Respiratory History: COPD, Tuberculosis, Other Endocrine Medical History: No Pertinent History Musculoskelatal History: No Pertinent History GI Medical History: Diverticulosis, Hemorrhoids, Hernia History: No Pertinent History Pyscho-Social History: No Pertinent History Male Reproductive Disorders: No Pertinent History Comment: SPONTANOUS PNUEMOTHORAX x 2. TB 2002. - Past Surgical History Past Surgical History: Yes Neuro Surgical History: No Pertinent History Cardiac History: Cardiac Catheterization, Cardiac Stent Respiratory Surgery: Other GI Surgical History: Hernia Repair Genitourinary Surgical Hx: No Pertinent History Musculskeletal Surgical Hx: No Pertinent History Male Surgical History: No Pertinent History Other Surgical History: RIGHT SIDE HERNIA REPAIR. 2 SPONTANEOUS PNEUMOTHORAX AT AGE OG 24 ET 26. 2 stents placed. middle finger left hand - Social History Smoking Status: Current every day smoker How long have you smoked: 15 years Exposure to second hand smoke: Yes Alcohol: Daily Drug Use: none, marijuana, methamphetamines Significant Family History: no pertinent family hx - Physical Exam Vital Signs: Vital Signs - 24 hr Temp Pulse Resp BP Pulse Ox 05/22/22 12:00 97.3 F 100 H 22 126/83 96 05/22/22 11:08 97 H 13 94 L 05/22/22 10:00 75 18 92 L 05/22/22 08:00 97.1 F 82 17 111/48 90 L 05/22/22 07:55 86 05/22/22 07:18 66 16 94 L 05/22/22 04:00 97.1 F 92 H 19 138/85 94 L 05/22/22 03:05 73 16 92 L 05/21/22 23:15 93 H 20 93 L 05/21/22 23:00 91 L 05/21/22 22:47 97.8 F 94 H 21 153/95 91 L 05/21/22 21:10 81 24 123/58 90 L 05/21/22 20:58 92 L 05/21/22 20:26 79 18 124/76 92 L 05/21/22 19:15 93 H 28 H 93 L 05/21/22 19:05 98.3 F 92 H 15 117/90 97 General Appearance: no apparent distress, anxiety (states nicotene withdrawl) Neurologic Exam: alert, oriented x 3, cooperative Eye Exam: eyes nml inspection Ears, Nose, Throat Exam: moist mucous membranes, pharyngeal erythema (no exud ate,swallows without difficulty) Neck Exam: normal inspection Respiratory Exam: diminished breath sounds (bases,no wheeze or rales or ronchi) Cardiovascular Exam: regular rate/rhythm Gastrointestinal/Abdomen Exam: soft, normal bowel sounds (nontender) Rectal Exam: not done Back Exam: normal inspection Skin Exam: normal color, warm, dry Results - Labs Lab/Micro Results: Lab Results-Last 24 Hours 05/21/22 05/21/22 05/21/22 Range/Units 19:19 19:52 19:52 WBC 7.0 (4.0-10.5) x10^3/uL RBC 5.13 (4.1-5.6) x10^6/uL Hgb 16.6 (12.5-18.0) g/dL Hct 49.2 (42-50) % MCV 95.9 (78-100) fL MCH 32.4 H (26-32) pg MCHC 33.7 (32-36) g/dL RDW 13.4 (11.5-14.0) % Plt Count 175 (150-450) x10^3/uL MPV 9.8 (7.5-11.0) fL Gran % 55.3 (36.0-66.0) % Immature Gran % (Auto) 1.0 H (0.00-0.4) % Nucleat RBC Rel Count 0.0 (0.00-0.1) % Eos # (Auto) 0.27 (0-0.5) x10^3/uL Immature Gran # (Auto) 0.07 H (0.00-0.03) x10^3u/L Absolute Lymphs (auto) 2.12 (1.0-4.6) x10^3/uL Absolute Monos (auto) 0.64 (0.0-1.3) x10^3/uL Absolute Nucleated RBC 0.00 (0.00-0.01) x10^3u/L Lymphocytes % 30.1 (24.0-44.0) % Monocytes % 9.1 (0.0-12.0) % Eosinophils % 3.8 (0.00-5.0) % Basophils % 0.7 (0.0-0.4) % Absolute Granulocytes 3.89 (1.4-6.9) x10^3/uL Basophils # 0.05 (0-0.4) x10^3/uL Puncture Site LEFT RADIAL pCO2 40 (35-45) mmHg pO2 87 (75-100) mmHg Base Excess 2.0 (-2.0-2.0) O2 Saturation 90.4 L (94-100) g/dF ABG pH 7.43 (7.35-7.45) ABG HCO3 26.5 (22-28) ABG O2 Sat (Measured) 97.7 (95-100) % Carlos Test YES A-a Gradient 148 a/A Ratio 0.37 Hemoglobin 17.2 Carboxyhemoglobin 6.3 (0.0-6.9) % THgb Methemoglobin 1.1 L (1.4-1.5) % Potassium 3.7 3.8 (3.5-5.1) Temperature 37.0 C POC O2 Flow Rate 40 % Sodium 133 L (137-145) mmol/L Chloride 103 (98-107) mmol/L Carbon Dioxide 19 L (22-30) mmol/L Anion Gap 15.0 (5-15) MEQ/L BUN 14 (9-20) mg/dL Creatinine 0.71 (0.66-1.25) mg/dL Estimated GFR > 60.0 ML/MIN Glucose 117 H (74-106) mg/dL Lactic Acid 1.8 (0.4-2.0) Calcium 8.2 L (8.4-10.2) mg/dL Magnesium 2.1 (1.6-2.3) mg/dL Total Bilirubin 0.70 (0.2-1.3) mg/dL AST 81 H (17-59) U/L ALT 59 H (0-50) U/L Alkaline Phosphatase 103 (38-126) U/L Troponin I (0.000-0.034) ng/mL NT-Pro-B Natriuret Pep 50.6 (0-900) pg/mL Serum Total Protein 6.9 (6.3-8.2) g/dL Albumin 3.6 (3.5-5.0) g/dL Urinalys Dipstick Clnc Urine Color (YELLOW) Urine Appearance (CLEAR) Urine pH (5-6) Ur Specific [place] (1.005-1.025) POC Urine Protein Conf (Negative) Urine Ketones (NEGATIVE) Urine Nitrite (NEGATIVE) Urine Bilirubin (NEGATIVE) Urine Urobilinogen (0-1) mg/dL Urine Leukocytes (NEGATIVE) Urine WBC (Auto) (0-5) /HPF Urine RBC (Auto) (0-2) /HPF U Epithel Cells (Auto) (FEW) /HPF Urine Bacteria (Auto) (NEGATIVE) /HPF Urine RBC (0-5) Moris/ul Other Casts (Auto) (NEGATIVE) /LPF Ur Culture Indicated? Urine Glucose (NEGATIVE) mg/dL Influenza Type A Ag (NEGATIVE) Influenza Type B Ag (NEGATIVE) RSV (PCR) (Negative) SARS-CoV-2 (PCR) (NEGATIVE) Slides for Path Review 05/21/22 05/21/22 05/21/22 Range/Units 19:52 20:47 20:47 WBC (4.0-10.5) x10^3/uL RBC (4.1-5.6) x10^6/uL Hgb (12.5-18.0) g/dL Hct (42-50) % MCV (78-100) fL MCH (26-32) pg MCHC (32-36) g/dL RDW (11.5-14.0) % Plt Count (150-450) x10^3/uL MPV (7.5-11.0) fL Gran % (36.0-66.0) % Immature Gran % (Auto) (0.00-0.4) % Nucleat RBC Rel Count (0.00-0.1) % Eos # (Auto) (0-0.5) x10^3/uL Immature Gran # (Auto) (0.00-0.03) x10^3u/L Absolute Lymphs (auto) (1.0-4.6) x10^3/uL Absolute Monos (auto) (0.0-1.3) x10^3/uL Absolute Nucleated RBC (0.00-0.01) x10^3u/L Lymphocytes % (24.0-44.0) % Monocytes % (0.0-12.0) % Eosinophils % (0.00-5.0) % Basophils % (0.0-0.4) % Absolute Granulocytes (1.4-6.9) x10^3/uL Basophils # (0-0.4) x10^3/uL Puncture Site pCO2 (35-45) mmHg pO2 (75-100) mmHg Base Excess (-2.0-2.0) O2 Saturation (94-100) g/dF ABG pH (7.35-7.45) ABG HCO3 (22-28) ABG O2 Sat (Measured) (95-100) % Carlos Test A-a Gradient a/A Ratio Hemoglobin Carboxyhemoglobin (0.0-6.9) % THgb Methemoglobin (1.4-1.5) % Potassium (3.5-5.1) Temperature C POC O2 Flow Rate % Sodium (137-145) mmol/L Chloride (98-107) mmol/L Carbon Dioxide (22-30) mmol/L Anion Gap (5-15) MEQ/L BUN (9-20) mg/dL Creatinine (0.66-1.25) mg/dL Estimated GFR ML/MIN Glucose (74-106) mg/dL Lactic Acid (0.4-2.0) Calcium (8.4-10.2) mg/dL Magnesium (1.6-2.3) mg/dL Total Bilirubin (0.2-1.3) mg/dL AST (17-59) U/L ALT (0-50) U/L Alkaline Phosphatase (38-126) U/L Troponin I < 0.012 (0.000-0.034) ng/mL NT-Pro-B Natriuret Pep (0-900) pg/mL Serum Total Protein (6.3-8.2) g/dL Albumin (3.5-5.0) g/dL Urinalys Dipstick Clnc MAIN LAB Urine Color YELLOW (YELLOW) Urine Appearance CLEAR (CLEAR) Urine pH 6.0 (5-6) Ur Specific [place] 1.010 (1.005-1.025) POC Urine Protein Conf NEGATIVE (Negative) Urine Ketones NEGATIVE (NEGATIVE) Urine Nitrite NEGATIVE (NEGATIVE) Urine Bilirubin NEGATIVE (NEGATIVE) Urine Urobilinogen 0.2 (0-1) mg/dL Urine Leukocytes NEGATIVE (NEGATIVE) Urine WBC (Auto) NONE (0-5) /HPF Urine RBC (Auto) NONE (0-2) /HPF U Epithel Cells (Auto) NONE (FEW) /HPF Urine Bacteria (Auto) NONE (NEGATIVE) /HPF Urine RBC NEGATIVE (0-5) Moris/ul Other Casts (Auto) NEGATIVE (NEGATIVE) /LPF Ur Culture Indicated? NO Urine Glucose NEGATIVE (NEGATIVE) mg/dL Influenza Type A Ag NEGATIVE (NEGATIVE) Influenza Type B Ag NEGATIVE (NEGATIVE) RSV (PCR) NEGATIVE (Negative) SARS-CoV-2 (PCR) NEGATIVE (NEGATIVE) Slides for Path Review 05/21/22 05/22/22 05/22/22 Range/Units 22:30 01:21 04:15 WBC (4.0-10.5) x10^3/uL RBC (4.1-5.6) x10^6/uL Hgb (12.5-18.0) g/dL Hct (42-50) % MCV (78-100) fL MCH (26-32) pg MCHC (32-36) g/dL RDW (11.5-14.0) % Plt Count (150-450) x10^3/uL MPV (7.5-11.0) fL Gran % (36.0-66.0) % Immature Gran % (Auto) (0.00-0.4) % Nucleat RBC Rel Count (0.00-0.1) % Eos # (Auto) (0-0.5) x10^3/uL Immature Gran # (Auto) (0.00-0.03) x10^3u/L Absolute Lymphs (auto) (1.0-4.6) x10^3/uL Absolute Monos (auto) (0.0-1.3) x10^3/uL Absolute Nucleated RBC (0.00-0.01) x10^3u/L Lymphocytes % (24.0-44.0) % Monocytes % (0.0-12.0) % Eosinophils % (0.00-5.0) % Basophils % (0.0-0.4) % Absolute Granulocytes (1.4-6.9) x10^3/uL Basophils # (0-0.4) x10^3/uL Puncture Site pCO2 (35-45) mmHg pO2 (75-100) mmHg Base Excess (-2.0-2.0) O2 Saturation (94-100) g/dF ABG pH (7.35-7.45) ABG HCO3 (22-28) ABG O2 Sat (Measured) (95-100) % Carlos Test A-a Gradient a/A Ratio Hemoglobin Carboxyhemoglobin (0.0-6.9) % THgb Methemoglobin (1.4-1.5) % Potassium (3.5-5.1) Temperature C POC O2 Flow Rate % Sodium (137-145) mmol/L Chloride (98-107) mmol/L Carbon Dioxide (22-30) mmol/L Anion Gap (5-15) MEQ/L BUN (9-20) mg/dL Creatinine (0.66-1.25) mg/dL Estimated GFR ML/MIN Glucose (74-106) mg/dL Lactic Acid (0.4-2.0) Calcium (8.4-10.2) mg/dL Magnesium (1.6-2.3) mg/dL Total Bilirubin (0.2-1.3) mg/dL AST (17-59) U/L ALT (0-50) U/L Alkaline Phosphatase (38-126) U/L Troponin I < 0.012 < 0.012 < 0.012 (0.000-0.034) ng/mL NT-Pro-B Natriuret Pep (0-900) pg/mL Serum Total Protein (6.3-8.2) g/dL Albumin (3.5-5.0) g/dL Urinalys Dipstick Clnc Urine Color (YELLOW) Urine Appearance (CLEAR) Urine pH (5-6) Ur Specific [place] (1.005-1.025) POC Urine Protein Conf (Negative) Urine Ketones (NEGATIVE) Urine Nitrite (NEGATIVE) Urine Bilirubin (NEGATIVE) Urine Urobilinogen (0-1) mg/dL Urine Leukocytes (NEGATIVE) Urine WBC (Auto) (0-5) /HPF Urine RBC (Auto) (0-2) /HPF U Epithel Cells (Auto) (FEW) /HPF Urine Bacteria (Auto) (NEGATIVE) /HPF Urine RBC (0-5) Moris/ul Other Casts (Auto) (NEGATIVE) /LPF Ur Culture Indicated? Urine Glucose (NEGATIVE) mg/dL Influenza Type A Ag (NEGATIVE) Influenza Type B Ag (NEGATIVE) RSV (PCR) (Negative) SARS-CoV-2 (PCR) (NEGATIVE) Slides for Path Review 05/22/22 05/22/22 05/22/22 Range/Units 04:15 04:15 07:30 WBC 7.6 (4.0-10.5) x10^3/uL RBC 5.36 (4.1-5.6) x10^6/uL Hgb 17.1 (12.5-18.0) g/dL Hct 50.5 H (42-50) % MCV 94.2 (78-100) fL MCH 31.9 (26-32) pg MCHC 33.9 (32-36) g/dL RDW 13.4 (11.5-14.0) % Plt Count 163 (150-450) x10^3/uL MPV 10.0 (7.5-11.0) fL Gran % 91.1 H (36.0-66.0) % Immature Gran % (Auto) 0.8 H (0.00-0.4) % Nucleat RBC Rel Count 0.0 (0.00-0.1) % Eos # (Auto) 0.01 (0-0.5) x10^3/uL Immature Gran # (Auto) 0.06 H (0.00-0.03) x10^3u/L Absolute Lymphs (auto) 0.51 L (1.0-4.6) x10^3/uL Absolute Monos (auto) 0.06 (0.0-1.3) x10^3/uL Absolute Nucleated RBC 0.00 (0.00-0.01) x10^3u/L Lymphocytes % 6.7 L (24.0-44.0) % Monocytes % 0.8 (0.0-12.0) % Eosinophils % 0.1 (0.00-5.0) % Basophils % 0.5 (0.0-0.4) % Absolute Granulocytes 6.89 (1.4-6.9) x10^3/uL Basophils # 0.04 (0-0.4) x10^3/uL Puncture Site pCO2 (35-45) mmHg pO2 (75-100) mmHg Base Excess (-2.0-2.0) O2 Saturation (94-100) g/dF ABG pH (7.35-7.45) ABG HCO3 (22-28) ABG O2 Sat (Measured) (95-100) % Carlos Test A-a Gradient a/A Ratio Hemoglobin Carboxyhemoglobin (0.0-6.9) % THgb Methemoglobin (1.4-1.5) % Potassium 4.1 (3.5-5.1) Temperature C POC O2 Flow Rate % Sodium 135 L (137-145) mmol/L Chloride 103 (98-107) mmol/L Carbon Dioxide 27 (22-30) mmol/L Anion Gap 9.6 (5-15) MEQ/L BUN 14 (9-20) mg/dL Creatinine 0.72 (0.66-1.25) mg/dL Estimated GFR > 60.0 ML/MIN Glucose 213 H (74-106) mg/dL Lactic Acid (0.4-2.0) Calcium 8.8 (8.4-10.2) mg/dL Magnesium (1.6-2.3) mg/dL Total Bilirubin 0.50 (0.2-1.3) mg/dL AST 57 (17-59) U/L ALT 55 H (0-50) U/L Alkaline Phosphatase 94 (38-126) U/L Troponin I < 0.012 (0.000-0.034) ng/mL NT-Pro-B Natriuret Pep (0-900) pg/mL Serum Total Protein 7.0 (6.3-8.2) g/dL Albumin 3.7 (3.5-5.0) g/dL Urinalys Dipstick Clnc Urine Color (YELLOW) Urine Appearance (CLEAR) Urine pH (5-6) Ur Specific [place] (1.005-1.025) POC Urine Protein Conf (Negative) Urine Ketones (NEGATIVE) Urine Nitrite (NEGATIVE) Urine Bilirubin (NEGATIVE) Urine Urobilinogen (0-1) mg/dL Urine Leukocytes (NEGATIVE) Urine WBC (Auto) (0-5) /HPF Urine RBC (Auto) (0-2) /HPF U Epithel Cells (Auto) (FEW) /HPF Urine Bacteria (Auto) (NEGATIVE) /HPF Urine RBC (0-5) Moris/ul Other Casts (Auto) (NEGATIVE) /LPF Ur Culture Indicated? Urine Glucose (NEGATIVE) mg/dL Influenza Type A Ag (NEGATIVE) Influenza Type B Ag (NEGATIVE) RSV (PCR) (Negative) SARS-CoV-2 (PCR) (NEGATIVE) Slides for Path Review YES - Radiology Impressions Radiology Exams & Impressions: Radiology Procedures Category Date Time Status CHEST 1 VIEW (PORTABLE) Stat Exams 05/21/22 19:12 Completed - Other Procedures and Tests Respiratory Therapy 05/21/22 19:35 Respiratory Therapy Assessment DAILY 05/21/22 22:25 Oxygen Nasal Cannula 4 lpm Assessment/Plan (1) Acute chemical pneumonitis Current Visit: Yes Status: Resolved Assessment & Plan: rapidly improved with IV benadry,IV solumedrol and duoneb tx. Code(s): J68.0 - BRONCHITIS & PNEUMONITIS D/T CHEMICALS, GAS, FUMES & VAPORS (2) COPD (chronic obstructive pulmonary disease) Current Visit: Yes Status: Chronic Qualifiers: COPD type: COPD with acute exacerbation Qualified Code(s): J44.1 - Chronic obstructive pulmonary disease with (acute) exacerbation (3) HTN (hypertension) Current Visit: Yes Status: Acute Assessment & Plan: controlled on home meds Code(s): I10 - ESSENTIAL (PRIMARY) HYPERTENSION (4) CAD (coronary artery disease) Current Visit: Yes Status: Chronic Qualifiers: Associated angina: without angina Assessment & Plan: stable Code(s): I25.10 - ATHSCL HEART DISEASE OF [place] CORONARY ARTERY W/O ANG PCTRS (5) Anxiety Current Visit: Yes Status: Acute Assessment & Plan: due to steroids and nicotene withdrawl,Ativan and nicotene patch during hospital stay. Code(s): F41.9 - ANXIETY DISORDER, UNSPECIFIED
--- NOTE | 2022-05-22 14:40 | CONS ---
CONSULT DATE: 05/22/2022 HISTORY: Omar Adam is a 62-year-old male who has been admitted with acute onset shortness of breath. The patient apparently used bleach while cleaning at home leading to cough, shortness of breath and wheezing. He was seen in the emergency room with respiratory difficulty. After initial treatment he has been hospitalized. His chest x-ray was unremarkable. He has been treated with steroids and bronchodilators with clinical improvement. At the time of my evaluation he is awake, comfortable and able to carry out a conversation. Voices no new complaints. PAST MEDICAL HISTORY: Positive for two times right side spontaneous pneumothorax several years ago. History of coronary artery disease. He had two stents placed by Dr. Spaulding. History of dyslipidemia and hypertension PAST SURGICAL HISTORY: As above. PERSONAL AND SOCIAL HISTORY: The patient does smoke. MEDICATIONS: Medications reviewed. ALLERGIES: ALLERGIES NOTED. PHYSICAL EXAMINATION: This is a middle aged male awake, comfortable and able to carry out a conversation. Vital signs noted. HEENT: Normocephalic. Oral exam unremarkable. CVS: First and second heart sounds are normal, regular, rhythmic. RESPIRATORY: Shows diminished breath sounds, clear to auscultation. ABDOMEN: Soft. EXTREMITIES: No edema is noted. LABORATORY DATA AND TESTS: Labs reviewed. X-ray noted. ASSESSMENT: This is a 62-year-old admitted with: 1) Acute respiratory distress secondary to chemical pneumonitis from accidental inhalation of bleach. 2) Underlying chronic obstructive pulmonary disease? 3) Coronary artery disease status post PCI and hypertension. 4) Nicotine addiction. RECOMMENDATIONS: 1) The patient is showing clinical improvement. 2) May switch to oral steroid with taper. 3) The patient may discharged home with outpatient follow up. Advised to follow up with me in two weeks on discharge. Need for smoking cessation discussed. Further recommendations awaiting clinical improvement. Thank you for allowing me to participate in the care of this patient.
[2022-05-22] MEDS: Toprol Xl 50 MG PO SCH (16:17)
[2022-05-22] MEDS: Zetia 10 MG PO SCH (16:17)
[2022-05-22] MEDS: LASIX 20 MG PO SCH (16:17)
[2022-05-22] MEDS: Zestril 5 MG PO SCH (16:17)
[2022-05-22] MEDS: Ativan 1 MG PO PRN (18:02)
[2022-05-22] MEDS: solu-MEDROL 40 MG, Sterile H2O 10 ml 1 ML IV SCH ×2 (21:02)
[2022-05-22] MEDS ORDERED: Levofloxacin 500MG/100ML D5W 500 MG/100 ML BAG IV SCH (22:00)
[2022-05-23] MEDS: Ativan 1 MG PO PRN ×2 (00:11→05:46)
[2022-05-23] MEDS: solu-MEDROL 40 MG, Sterile H2O 10 ml 1 ML IV SCH ×2 (05:53)
[2022-05-23] MEDS: DUONEB 0.5-3 MG/3 ml Neb IH SCH (06:53)
[2022-05-23 07:42] VITALS: BP 158/87; PULSE 82
[2022-05-23] MEDS: Toprol Xl 50 MG PO SCH (07:50)
[2022-05-23] MEDS: LASIX 20 MG PO SCH (07:50)
[2022-05-23] MEDS: Zetia 10 MG PO SCH (07:50)
[2022-05-23] MEDS: Zestril 5 MG PO SCH (07:50)
[2022-05-23] MEDS: PROTONIX 40 MG IV IV SCH (07:52)
--- NOTE | 2022-05-23 09:20 | PCM.DCORD ---
- Discharge Disposition: Home, Self-Care Condition: Stable Prescriptions: New Albuterol Sulfate [Albuterol Sulfate Hfa] 18 gm IH Q4H PRN PRN #1 PRN Reason: wheezing Prednisone 10 mg [Deltasone 10 mg] 10 mg PO DAILY #20 tablet Continue lisinopriL [Lisinopril] 5 mg PO DAILY Metoprolol Succinate 50 mg [Toprol Xl 50 MG] 50 mg PO DAILY Furosemide 20 mg [Lasix 20 mg] 20 mg PO DAILY Ezetimibe 10 mg [Zetia 10 MG] 10 mg PO DAILY Follow up with: CASSANDRA HEWITT [ACTIVE STAFF] - (FOLLOW UP IN TWO WEEKS AFTER DISCHARGE) MARIA GUADALUPE SUGGS DO [ACTIVE STAFF] -
[2022-05-25 07:49] VITALS: O2SAT 92
== END 2022-05-23 10:10 | disposition home or self-care (01) ==
LOC: ED 19:04 → ICU 22:24
PROVIDERS: ADMIT Family Medicine; ATTEND Family Medicine
DX: J68.0 Bronchitis and pneumonitis due to chemicals, gases, fumes and vapors (principal); T54.91XA Toxic effect of unspecified corrosive substance, accidental (unintentional), initial encounter; I10 Essential (primary) hypertension; I25.10 Atherosclerotic heart disease of native coronary artery without angina pectoris; F41.9 Anxiety disorder, unspecified; I25.2 Old myocardial infarction; Z79.899 Other long term (current) drug therapy; Z72.0 Tobacco use; Z20.828 Contact with and (suspected) exposure to other viral communicable diseases
CPT/HCPCS: 0241U; 36000; 36415; 36600; 71045; 80053; 81015; 82375; 82803; 83605; 83735; 83880; 84484; 85025; 93005; 93041; 93268; 94640; 96365; 96374; 99285; 99291; G0378; 94762; J1200; J1956; J2920; J2930; A9270-GY